=== PATIENT | male | born 1975 | race Caucasian/White ===

== ENCOUNTER 2016-08-19 16:56 | Emergency (ER) | payer SELFPAY ==
[2016-08-20] MEDS ORDERED: PERCOCET 5-3251 EACH PO (15:36)
== END 2016-08-19 18:25 | disposition home or self-care (01) ==
LOC: ER1 16:56
DX: S68.011A Complete traumatic metacarpophalangeal amputation of right thumb, initial encounter (principal); S61.304A Unspecified open wound of right ring finger with damage to nail, initial encounter; F17.200 Nicotine dependence, unspecified, uncomplicated; Z23 Encounter for immunization; W30.89XA Contact with other specified agricultural machinery, initial encounter; Y92.009 Unspecified place in unspecified non-institutional (private) residence as the place of occurrence of the external cause
CPT/HCPCS: 36415; 73130; 90715; 96365; 96375; 99283; J0690; J2405; J7050

== ENCOUNTER 2016-08-20 14:40 | Day surgery (SDC) | payer SELFPAY ==
[~2016-08-20] VITALS: Ht 172.7 cm; Wt 70.3 kg
[2016-08-20] MEDS ORDERED: PERCOCET 5-3251 EACH PO (15:36)
[2016-08-20 15:41] LABS: BUN/CREATININE RATIO 13 (0-10)
[2016-08-21] MEDS ORDERED: KEFLEX500 MG PO (10:52)
[2016-08-21] MEDS ORDERED: NORCO 7.5-3251 EACH PO (10:53)
== END 2016-08-21 19:40 | disposition home or self-care (01) ==
LOC: OR 14:40 → M/S 18:20 → OR 08-21 19:40
PROVIDERS: Orthopaedic Surgery
PROC: 0RPS04Z Removal of Internal Fixation Device from Right Carpometacarpal Joint, Open Approach (ICD-10-PCS; principal; 2016-08-20 14:15)
PROC: 0PBP0ZZ Excision of Right Metacarpal, Open Approach (ICD-10-PCS; 2016-08-20 14:15)
DX: T84.290A Other mechanical complication of internal fixation device of bones of hand and fingers, initial encounter (principal); I10 Essential (primary) hypertension; F17.210 Nicotine dependence, cigarettes, uncomplicated; Z79.891 Long term (current) use of opiate analgesic; Z89.011 Acquired absence of right thumb; Z98.890 Other specified postprocedural states
CPT/HCPCS: 80048; J2250; J2270; J2543; J2795; J3010; J7050; J7120

== ENCOUNTER 2021-07-02 19:52 | Emergency (ER) | payer OTHER ==
[~2021-07-02 19:52] MED LIST: KEFLEX500 MG PO; NORCO 7.5-3251 EACH PO; PERCOCET 5-3251 EACH PO
[2021-07-03] MEDS ORDERED: OMNICEF 300 MG300 MG PO (01:59)
[2021-07-03] MEDS ORDERED: BACTRIM DS TAB1 EACH PO (01:59)
== END 2021-07-03 02:35 | disposition home or self-care (01) ==
LOC: ER1 19:52
DX: S61.432A Puncture wound without foreign body of left hand, initial encounter (principal); F17.200 Nicotine dependence, unspecified, uncomplicated; W45.0XXA Nail entering through skin, initial encounter; Y92.009 Unspecified place in unspecified non-institutional (private) residence as the place of occurrence of the external cause
CPT/HCPCS: 73130; 90471; 90715; 99283